=== PATIENT | female | born 1970 | race Two or more races ===

== ENCOUNTER 2023-07-19 09:35 | Emergency (ER) | payer MEDICARE, OTHER ==
[~2023-07-19] VITALS: Ht 162.6 cm; Wt 52.2 kg
[2023-07-19 10:19] LABS: Alanine Aminotransferase 17 U/L (7-40); Albumin 4.5 g/dL (3.2-4.8); Alkaline Phosphatase 72 U/L (46-116); Anion Gap 5 (5-15); Aspartate Aminotransferase 26 U/L (13-40); BUN/Creatinine Ratio 12.7 (10.0-20.0); Blood Urea Nitrogen 9 mg/dL (9-23); Calcium 9.6 mg/dL (8.5-10.1); Carbon Dioxide 28 mmol/L (20-30); Chloride 106 mmol/L (98-107); Glucose 113 mg/dL (74-106); Magnesium 1.8 mg/dL (1.6-2.6); Potassium 4.4 mmol/L (3.5-5.1); Sodium 139 mmol/L (136-145)
[2023-07-19 10:20] LABS: Bilirubin, Total 0.6 mg/dL (0.2-1.0); Total Protein 7.5 g/dL (5.7-8.2)
[2023-07-19 10:26] LABS: Basophils # (auto) 0 10 ^3/uL (0-0.2); Basophils % (auto) 0.7 % (0.0-2.0); Eosinophils # (auto) 0.1 10 ^3/uL (0-0.8); Eosinophils % (auto) 2.4 % (0.0-7.0); Hematocrit 41.8 % (36.0-46.0); Hemoglobin 13.7 g/dL (12.2-16.2); Lymphocytes # (auto) 1.6 10 ^3/uL (0.4-5.4); Lymphocytes % (auto) 33.9 % (10.0-50.0); Mean Corpuscular Hemoglobin 33.2 pg (28.0-32.0); Mean Corpuscular Hgb Conc. 32.8 g/dL (32.0-36.0); Mean Corpuscular Volume 101.3 fL (80.0-100.0); Monocytes # (auto) 0.5 10 ^3/uL (0-1.3); Monocytes % (auto) 11.1 % (0.0-12.0); Neutrophils # (auto) 2.5 10 ^3/uL (1.6-8.6); Neutrophils % (auto) 51.9 % (37.0-80.0); Red Blood Cells 4.13 10^6/uL (4.0-5.20); White Blood Cell 4.8 10^3/uL (4.4-10.8)
[2023-07-19 10:38] LABS: INR 0.98 (0.9-1.15); Partial Thromboplastin Time 22.8 SEC (24.5-34.5); Prothrombin Time 10.3 sec (9.3-11.8)
[2023-07-19 10:54] LABS: Urine Bacteria FEW /hpf (None Seen); Urine Blood Negative /uL (Negative); Urine Clarity Clear (Clear); Urine Color Yellow (Yellow); Urine Protein, UAD Negative (Negative); Urine Specific Gravity 1.018 (1.001-1.035); Urine Urobilinogen Normal (Negative); Urine WBC 1 /hpf (0 - 5); Urine pH 6.5 (5.0-8.0)
[2023-07-19] MEDS ORDERED: IOHEXOL 350 MG/ML 100ML IJ ONE (12:36)
[2023-07-19 14:24] VITALS: PULSE 86; RESP 24; O2SAT 98
[2023-07-19 15:00] VITALS: BP 157/103; PULSE 91; RESP 22; TEMP 97.8; O2SAT 97
[2023-07-19] MEDS ORDERED: cloNIDine HCL 0.1 MG TAB PO ONE (15:30)
== END 2023-07-19 16:13 | disposition home or self-care (01) ==
LOC: ER 09:35
DX: R07.89 Other chest pain (principal); I16.0 Hypertensive urgency; Z79.899 Other long term (current) drug therapy
CPT/HCPCS: 36415; 71045; 71275; 80053; 81001; 83735; 83880; 84484; 85025; 85379; 85610; 85730; 93005; 99285; Q9967